=== PATIENT | male | born 1995 | race Caucasian/White ===

== ENCOUNTER → 2017-07-30 | Outpatient (CLI) | payer OTHER ==
[2017-07-30 12:37] LABS: BASOPHILS % (AUTO) 0 % (0-10); EOSINOPHILS % (AUTO) 0 % (0-10); LYMPHOCYTES # (AUTO) 1.2 X 10^3 (1.0-4.0); LYMPHOCYTES % (AUTO) 11 % (12-44); MEAN CORPUSCULAR HEMOGLOBIN 28 PG (25-34); MEAN CORPUSCULAR HGB CONC 33 G/DL (32-36); MEAN CORPUSCULAR VOLUME 84 FL (80-99); MEAN PLATELET VOLUME 9.5 FL (7.4-10.4); MONOCYTES # (AUTO) 0.9 X 10^3 (0.0-1.0); MONOCYTES % (AUTO) 9 % (0-12); NEUTROPHILS # (AUTO) 8.5 X 10^3 (1.8-7.8); NEUTROPHILS % (AUTO) 80 % (42-75); PLATELET COUNT 247 10^3/uL (130-400); RED BLOOD COUNT 5.17 10^6/uL (4.35-5.85); RED CELL DISTRIBUTION WIDTH 12.9 % (10.0-14.5); WHITE BLOOD COUNT 10.7 10^3/uL (4.3-11.0)
== END ==
LOC: LAB 12:26
PROVIDERS: ATTEND Nurse Practitioner Family
DX: J02.9 Acute pharyngitis, unspecified (principal)
CPT/HCPCS: 36415; 85025; 86308

== ENCOUNTER → 2017-07-31 | Outpatient (CLI) | payer OTHER ==
[2017-07-31 16:17] LABS: ALANINE AMINOTRANSFERASE 29 U/L (0-55); ALBUMIN 4.2 GM/DL (3.2-4.5); ANION GAP 11 MMOL/L (5-14); ASPARTATE AMINO TRANSFERASE 30 U/L (5-34); BILIRUBIN,TOTAL 0.4 MG/DL (0.1-1.0); BLOOD UREA NITROGEN 21 MG/DL (7-18); BUN/CREATININE RATIO 19; CALCIUM 9.2 MG/DL (8.5-10.1); CARBON DIOXIDE 24 MMOL/L (21-32); CHLORIDE 103 MMOL/L (98-107); CREATININE SERUM 1.08 MG/DL (0.60-1.30); GFR ESTIMATED > 60; GLUCOSE 95 MG/DL (70-105); POTASSIUM 4.1 MMOL/L (3.6-5.0); SODIUM 138 MMOL/L (135-145); TOTAL PROTEIN 7.6 GM/DL (6.4-8.2)
[2017-08-02 08:33] LABS: EBV EA AB INT Negative (Negative); EPSTEIN BARR EARLY ANTIGEN <5.0 U/ML (0.0-8.9)
[2017-08-02 08:34] LABS: EBV NUC IGG INT Positive (Negative); EBV VCA IGG INT Positive (Negative); EPSTEIN BARR NUCLEAR ANTIBODY 22.6 H U/ML (0.0-17.9)
== END ==
LOC: LAB 15:33
PROVIDERS: ATTEND Nurse Practitioner Family
DX: J02.9 Acute pharyngitis, unspecified (principal)
CPT/HCPCS: 36415; 80053; 86663; 86664; 86665

== ENCOUNTER 2017-11-06 19:13 | Emergency (ER) | payer OTHER ==
[~2017-11-06] VITALS: Ht 185.4 cm; Wt 77.1 kg
--- NOTE | 2017-11-06 19:53 | ED Cough/URI ---
General Chief Complaint: Cough/Cold/Flu Symptoms Stated Complaint: SORE THROAT,CONGESTION Nursing Triage Note: PT TO ED 9 W/ C/O COUGH, SORE THROAT X1 WK. REPORTS WAS SEEN AT [facility], PRESCRIBED TAMIFLU ET PREDNISONE. STATES STILL WASN'T FEELING BETTER THE NEXT DAY SO HE WAS SEEN AT [facility]. REPORTS HE WAS TAKEN OFF TAMIFLU ET PREDNISONE ET PUT ON CECLOR. DENIES IMPROVEMENT. DOES REPORT HE'S TAKEN ONE DOSE OF MUCINEX "BUT IT DIDN'T HELP" AND HAS TAKEN TYLENOL ONLY FOR FEVER Source: patient Exam Limitations: no limitations History of Present Illness Time seen by provider: 19:51 Initial Comments To ER with sore throat cough and congestion that began on Tuesday of this last week which would be 11/01/17. He was seen at [facility] here in [place] and treated empirically with Tamiflu. He was unsatisfied not being tested for influenza so he went to [facility] he was swabbed for influenza test is negative. He went home and took the Tamiflu and prednisone for 1 day for denied improvement. Went back to [facility] on Tuesday was told to stop the prednisone and the Tamiflu and was put on Ceclor. Still denies improvement and complains of significant pain with swallowing. 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 However he does not believe that he has mono because he states he can playful basketball game without being exhausted. Timing/Duration: week Severity/Quality: dry cough Associated Symptoms: cough, fever/chills Allergies and Home Medications Allergies Coded Allergies: No Known Drug Allergies (Unverified , 11/06/17) Constitutional: see HPI EENTM: see HPI, nose pain Respiratory: see HPI, cough Cardiovascular: no symptoms reported Past Qbrwuen-Tjmrsh-Jpcklt Hx Patient Social History Alcohol Use: Occasionally Uses Recreational Drug Use: No Smoking Status: Never a Smoker Recent Foreign Travel: No Contact w/Someone Who Travel: No Recent Infectious Disease Expo: No Recent Hopitalizations: No Physical Abuse: No Sexual Abuse: No Mistreated: No Fear: No Surgeries History of Surgeries: Yes (CYST REMOVAL TO WRIST) Respiratory History of Respiratory Disorde: No Cardiovascular History of Cardiac Disorders: No Neurological History of Neurological Disord: No Genitourinary History of Genitourinary Disor: No Gastrointestinal History of Gastrointestinal Di: No Musculoskeletal History of Musculoskeletal Dis: No Endocrine History of Endocrine Disorders: No HEENT History of HEENT Disorders: No Cancer History of Cancer: No Psychosocial History of Psychiatric Problem: No Suicide Risk Score: 0 Blood Transfusions History of Blood Disorders: No Physical Exam Vital Signs Vital Sign - Last 12Hours 11/06/17 19:35 Temp 100.8 Pulse 85 Resp 16 B/P (MAP) 152/105 (121) Pulse Ox 97 O2 Delivery Room Air Capillary Refill : Less Than 3 Seconds General Appearance: WD/WN, no apparent distress Eyes: Bilateral Eye Normal Inspection, Bilateral Eye PERRL, Bilateral Eye EOMI HEENT: PERRL/EOMI, normal ENT inspection, other (ulcer on the uvula with erythema, ulcers x3 on left tonsillar pillar. No swelling to suggest peritonsillar abscess. ) Neck: lymphadenopathy (R), lymphadenopathy (L) Respiratory: normal breath sounds, no respiratory distress, no accessory muscle use Cardiovascular: regular rate, rhythm, no murmur Gastrointestinal: normal bowel sounds, non tender, soft Extremities: normal range of motion, non-tender Neurologic/Psychiatric: alert, normal mood/affect, oriented x 3 Skin: normal color, warm/dry Progress/Results/Core Measures Suspected Sepsis Recent Fever Within 48 Hours: Yes Infection Criteria Present: None New/Unexplained Altered Menta: No Sepsis Screen: No Definite Risk Sepsis Diagnosis: SIRS Temperature:100.8 Pulse: 85 Respiratory Rate: 16 Laboratory Tests 11/06/17 20:00: White Blood Count 7.8 Blood Pressure 152 /105 Mean: 121 Laboratory Tests 11/06/17 20:00: Creatinine 1.06, Platelet Count 235, Total Bilirubin 0.3 Results/Orders Lab Results Laboratory Tests Test 11/06/17 19:44 11/06/17 20:00 Range/Units Group A Streptococcus Screen NEGATIVE NEGATIVE White Blood Count 7.8 4.3-11.0 10^3/uL Red Blood Count 5.63 4.35-5.85 10^6/uL Hemoglobin 15.4 13.3-17.7 G/DL Hematocrit 48 40-54 % Mean Corpuscular Volume 86 80-99 FL Mean Corpuscular Hemoglobin 27 25-34 PG Mean Corpuscular Hemoglobin Concent 32 32-36 G/DL Red Cell Distribution Width 12.5 10.0-14.5 % Platelet Count 235 130-400 10^3/uL Mean Platelet Volume 9.7 7.4-10.4 FL Neutrophils (%) (Auto) 67 42-75 % Lymphocytes (%) (Auto) 22 12-44 % Monocytes (%) (Auto) 10 0-12 % Eosinophils (%) (Auto) 1 0-10 % Basophils (%) (Auto) 0 0-10 % Neutrophils # (Auto) 5.2 1.8-7.8 X 10^3 Lymphocytes # (Auto) 1.7 1.0-4.0 X 10^3 Monocytes # (Auto) 0.8 0.0-1.0 X 10^3 Eosinophils # (Auto) 0.1 0.0-0.3 10^3/uL Basophils # (Auto) 0.0 0.0-0.1 10^3/uL Sodium Level 140 135-145 MMOL/L Potassium Level 3.9 3.6-5.0 MMOL/L Chloride Level 102 98-107 MMOL/L Carbon Dioxide Level 26 21-32 MMOL/L Anion Gap 12 5-14 MMOL/L Blood Urea Nitrogen 24 H 7-18 MG/DL Creatinine 1.06 0.60-1.30 MG/DL Estimat Glomerular Filtration Rate > 60 BUN/Creatinine Ratio 23 Glucose Level 98 70-105 MG/DL Calcium Level 9.3 8.5-10.1 MG/DL Total Bilirubin 0.3 0.1-1.0 MG/DL Aspartate Amino Transf (AST/SGOT) 18 5-34 U/L Alanine Aminotransferase (ALT/SGPT) 14 0-55 U/L Alkaline Phosphatase 58 40-136 U/L Total Protein 7.9 6.4-8.2 GM/DL Albumin 4.3 3.2-4.5 GM/DL My Orders Orders - SEVEN RUIZ APRN Chest Pa/Lat (2 View) (11/06/17 19:41) Rapid Strep A Screen (11/06/17 19:41) Cbc With Automated Diff (11/06/17 19:41) Comprehensive Metabolic Panel (11/06/17 19:47) Ibuprofen Tablet (Motrin Tablet) (11/06/17 20:15) Vital Signs/I&O Vital Sign - Last 12Hours 11/06/17 19:35 Temp 100.8 Pulse 85 Resp 16 B/P (MAP) 152/105 (121) Pulse Ox 97 O2 Delivery Room Air Capillary Refill : Less Than 3 Seconds Blood Pressure Mean: 121 Departure Impression Impression: Primary Impression: Viral syndrome Disposition: 01 HOME, SELF-CARE Condition: Stable Departure-Patient Inst. Decision time for Depature: 20:15 Referrals: NO,LOCAL PHYSICIAN (PCP/Family) Primary Care Physician Patient Instructions: VIRAL SYNDROME Add. Discharge Instructions: 1. Ibuprofen 800mg every 8 hours for pain and fever. Tylenol 650mg every 4 hours for pain and fever. Cepacol sore throat lozenges (you can buy these at [employer]. They have benzocaine in them and will help with the pain). ALso use warm tea mixed with honey to help soothe the throat. Continue current medicaitions. No class for 48 hours, stay indoors and rest. No sports or working out until tuesday. All discharge instructions reviewed with patient and/or family. Voiced understanding. Work/School Note: Work Release Form Date Seen in the Emergency Department: Nov 06, 2017 Return to Work: Nov 08, 2017 Other Restrictions Listed Below: No Sports until 11/12/17 SEVEN RUIZ APRN Nov 06, 2017 19:53
[2017-11-06 20:11] LABS: BASOPHILS % (AUTO) 0 % (0-10); EOSINOPHILS # (AUTO) 0.1 10^3/uL (0.0-0.3); EOSINOPHILS % (AUTO) 1 % (0-10); HEMATOCRIT 48 % (40-54); HEMOGLOBIN 15.4 G/DL (13.3-17.7); LYMPHOCYTES # (AUTO) 1.7 X 10^3 (1.0-4.0); LYMPHOCYTES % (AUTO) 22 % (12-44); MEAN CORPUSCULAR HEMOGLOBIN 27 PG (25-34); MEAN CORPUSCULAR HGB CONC 32 G/DL (32-36); MEAN CORPUSCULAR VOLUME 86 FL (80-99); MEAN PLATELET VOLUME 9.7 FL (7.4-10.4); MONOCYTES # (AUTO) 0.8 X 10^3 (0.0-1.0); MONOCYTES % (AUTO) 10 % (0-12); NEUTROPHILS # (AUTO) 5.2 X 10^3 (1.8-7.8); NEUTROPHILS % (AUTO) 67 % (42-75); PLATELET COUNT 235 10^3/uL (130-400); RED BLOOD COUNT 5.63 10^6/uL (4.35-5.85); RED CELL DISTRIBUTION WIDTH 12.5 % (10.0-14.5); WHITE BLOOD COUNT 7.8 10^3/uL (4.3-11.0)
[2017-11-06] MEDS ORDERED: IBUPROFEN 800 MG (MOTRIN) TAB PO ONE (20:15)
[2017-11-06 20:30] LABS: ALANINE AMINOTRANSFERASE 14 U/L (0-55); ALBUMIN 4.3 GM/DL (3.2-4.5); ALKALINE PHOSPHATASE 58 U/L (40-136); BILIRUBIN,TOTAL 0.3 MG/DL (0.1-1.0); BUN/CREATININE RATIO 23; CALCIUM 9.3 MG/DL (8.5-10.1); CARBON DIOXIDE 26 MMOL/L (21-32); CHLORIDE 102 MMOL/L (98-107); CREATININE SERUM 1.06 MG/DL (0.60-1.30); GFR ESTIMATED > 60; GLUCOSE 98 MG/DL (70-105); POTASSIUM 3.9 MMOL/L (3.6-5.0); SODIUM 140 MMOL/L (135-145); TOTAL PROTEIN 7.9 GM/DL (6.4-8.2)
--- NOTE | 2017-11-06 20:41 | Diagnostic Imaging Report ---
EXAMINATION: PA and lateral chest INDICATION: Cough and sore throat FINDINGS: The lungs demonstrate no focal infiltrate or evidence of an effusion though there does appear to be some mild hyperexpansion. Heart size is normal. There is no pneumothorax. There is no evidence of failure. There is no osseous abnormality. IMPRESSION: 1. The lungs appear hyperinflated suggesting air trapping. This could be seen in the setting of bronchitis or related to asthma. No alveolar infiltrates are evident. Dictated by: Dictated on workstation # [id number]
[2017-11-06 20:51] VITALS: BP 148/99
== END 2017-11-06 20:51 | disposition home or self-care (01) ==
LOC: EDUNIT# 19:13 → ER 19:15
DX: B34.9 Viral infection, unspecified (principal)
CPT/HCPCS: 36415; 71046; 80053; 85025; 87040; 87430; 99284